=== PATIENT | female | born 1995 | race Caucasian/White ===

== ENCOUNTER 2018-12-11 13:53 | Emergency (ER) | payer OTHER ==
[~2018-12-11] VITALS: Ht 157.5 cm; Wt 60.0 kg
[2018-12-11 14:24] VITALS: Ht 157.5 cm; Wt 60.0 kg
--- NOTE | 2018-12-11 18:03 | ERD ---
ER Documentation Chief Complaint Chief Complaint FEVER WITH COUGH/RUNNY NOSE/RUSSELL X 1 DAY HPI The patient is a 23-year-old female, presenting with fever, nasal congestion, nasal discharge for 1day. She denies ear pain, facial pain, neck pain, chest pain, dyspnea, abdominal pain, vomiting, dysuria, diarrhea. She does not smoke, drinks socially, currently on her menstrual period Medical/surgical history: None ROS All systems reviewed and are negative except as per history of present illness. Medications Home Meds Active Scripts Guaifenesin-Dextromethorphan* (Robitussin* DM) 100MG/10MG/5ML Syrup, 10 ML PO Q6H PRN for COUGH, #120 ML Prov:RAVINDER COLORADO MD 12/11/18 Acetaminophen* (Tylenol*) 325 Mg Tablet, 2 TAB PO Q6 PRN for PAIN AND OR ELEVATED TEMP, #20 TAB Prov:RAVINDER COLORADO MD 12/11/18 Ibuprofen* (Motrin*) 600 Mg Tab, 600 MG PO Q6H PRN for PAIN AND OR ELEVATED TEMP, #20 TAB Prov:RAVINDER COLORADO MD 12/11/18 Oseltamivir Phosphate* (Tamiflu*) 75 Mg Capsule, 75 MG PO BID for 5 Days, CAP Prov:RAVINDER COLORADO MD 12/11/18 Allergies Allergies: Coded Allergies: No Known Allergy (Unverified , 12/11/18) Physical Exam Vitals Vital Signs Date Temp Pulse Resp B/P (MAP) Pulse Ox O2 O2 Flow FiO2 Time Delivery Rate 12/11/18 100.7 18:40 12/11/18 100.7 18:40 12/11/18 102.7 102 18 106/58 96 Room Air 18:31 (74) 12/11/18 100.9 100 105/67 99 Room Air 18:23 (80) 12/11/18 102.5 121 20 112/63 97 14:24 (79) Physical Exam Const: No acute distress. Head: Atraumatic. Eyes: Normal Conjunctiva. ENT: Normal External Ears, Nose and Mouth. Bilateral tympanic membranes/oropharynx are WNL Neck: Full range of motion. No meningismus. Resp: Clear to auscultation bilaterally. Cardio: Regular rate and rhythm. Abd: Soft, non distended, normal bowel sounds, non tender. Skin: No petechiae or rashes. Back: No midline or flank tenderness. Ext: No cyanosis, or edema. Neur: Awake and alert. No focal deficit Psych: Normal Mood and Affect. Results 24 hrs Current Medications Medications Dose Sig/Josh Start Time Status Last (Trade) Ordered Route PRN Stop Time Admin Dose Reason Admin Ibuprofen 600 mg ONCE ONCE 12/11/18 DC 12/11/18 (Motrin) PO 18:30 18:40 12/11/18 18:31 650 mg ONCE ONCE 12/11/18 DC 12/11/18 Acetaminophen PO 18:30 18:40 (Tylenol 12/11/18 18:31 Tab) Procedures/MDM MEDICAL MAKING DECISION: The patient is a 23-year-old female, presenting with acute influenza-like syndrome, repeat vital signs improved. She was treated with Tylenol and Motrin for fever with good response. The differential diagnoses considered include but are not limited to influenza, viral syndrome, pneumonia, cystitis Departure Diagnosis: Primary Impression: Influenza-like syndrome Condition: Good Comments She was discharged with Tamiflu, Motrin, Tylenol, Robitussin-DM I discussed the findings with the patient. I advised the patient to follow-up with the primary physician in about 2-3 days, sooner if needed and return if any concern. Disclaimer: Inadvertent spelling and grammatical errors are likely due to EHR/dictation software use and do not reflect on the overall quality of patient care. Also, please note that the electronic time recorded on this note does not necessarily reflect the actual time of the patient encounter. RAVINDER COLORADO MD Dec 11, 2018 18:03
[2018-12-11] MEDS ORDERED: IBUPROFEN 600 MG TAB PO ONE (18:30)
[2018-12-11] MEDS ORDERED: ACETAMINOPHEN 325 MG TAB PO ONE (18:30)
[2018-12-11 18:31] VITALS: BP 106/58; PULSE 102; RESP 18
[2018-12-11] MEDS ORDERED: OSEL75CA23 PO (18:33)
[2018-12-11] MEDS ORDERED: IBUP-1542 PO (18:33)
[2018-12-11] MEDS ORDERED: ACET325T33 PO (18:34)
[2018-12-11] MEDS ORDERED: GUAI5SYR2 PO (18:35)
== END 2018-12-11 18:45 | disposition home or self-care (01) ==
LOC: FTE 13:53
DX: R50.9 Fever, unspecified (principal); R05 Cough
CPT/HCPCS: Z7502; Z7610; 99283